=== PATIENT | female | born 1950 | race Caucasian/White ===

== ENCOUNTER 2022-08-16 06:30 | Day surgery (SDC) | payer MEDICARE, BC ==
[~2022-08-16 06:30] MED LIST: Lactated Ringers 1,000 ML IV SCH; Lidocaine 1%/Sod Bicarbonate in NS 8.4% 1 ML Syringe IDERM PRN; Sodium Chloride 0.9% 10 ML Syringe FLUSH PRN; Sodium Chloride 0.9% 10 ML Syringe FLUSH SCH
[2022-08-16] MEDS ORDERED: Lidocaine 1% 2 ML ONE ×2 (06:33→06:34)
[2022-08-16] MEDS ORDERED: fentaNYL 100 MCG/2 ML SDV ONE (06:33)
[2022-08-16] MEDS ORDERED: Propofol 200 MG/20 ML SDV ONE (06:33)
[2022-08-16] MEDS ORDERED: Lidocaine 1% 10 ML MDV ONE (06:40)
[2022-08-16] MEDS ORDERED: Bupivacaine 0.25% 10 ML SDV ONE (06:40)
== END 2022-08-16 09:15 | disposition home or self-care (01) ==
LOC: JD.SDS 06:30
PROVIDERS: ATTEND Orthopaedic Surgery
DX: M65.331 Trigger finger, right middle finger (principal); M65.341 Trigger finger, right ring finger; E78.00 Pure hypercholesterolemia, unspecified; Z79.899 Other long term (current) drug therapy
CPT/HCPCS: 01810; 99100; J2704; J3010; J3490; J7120